=== PATIENT | male | born 1995 | race Caucasian/White ===

== ENCOUNTER 2023-05-07 22:22 | Emergency (ER) | payer SELFPAY ==
[2023-05-07 22:49] VITALS: BP 143/92; O2SAT 98
== END 2023-05-07 22:59 | disposition left against medical advice (07) ==
LOC: ED 22:22
DX: Z53.21 Procedure and treatment not carried out due to patient leaving prior to being seen by health care provider (principal)
CPT/HCPCS: 80053; 80143; 80179; 82077; 82550; 83690; 83735; 84443; 85025